=== PATIENT | female | born 1940 | race Caucasian/White ===

== ENCOUNTER 2019-07-09 13:47 | Emergency (ER) | payer MEDICARE ==
[~2019-07-09] VITALS: Ht 165.1 cm; Wt 69.7 kg
--- NOTE | 2019-07-09 14:30 | NUR ---
PT C/O CP STRAIGHT ACROSS BREASTLINE, HEAVY STARTING AT 2200 LAST NOC. NAD NOTED AT THIS TIME. SIDE RAIL UP, CALL LIGHT IN REACH. 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
[2019-07-09 15:25] LABS: BASOPHILS # (AUTO) 0.03 x10^3/uL (0-0.1); BASOPHILS % (AUTO) 0 % (0-1); EOSINOPHILS # (AUTO) 0.09 x10^3/uL (0-0.4); EOSINOPHILS % (AUTO) 1 % (1-7); LYMPHOCYTES # (AUTO) 3.77 x10^3/uL (1-3.4); LYMPHOCYTES % (AUTO) 39 % (22-44); MD NO; MEAN CORPUSCULAR HEMOGLOBIN 30.8 pg (27.0-34.8); MEAN CORPUSCULAR HGB CONC 33.8 g/dL (32.4-35.8); MEAN PLATELET VOLUME 9.6 fL (7.4-10.4); MONOCYTES # (AUTO) 0.54 x10^3/uL (0.2-0.8); MONOCYTES % (AUTO) 6 % (2-9); NEUTROPHILS # (AUTO) 5.32 x10^3/uL (1.8-6.8); NEUTROPHILS % (AUTO) 55 % (42-75); PLATELET COUNT 181 x10^3/uL (130-400); RED BLOOD COUNT 4.74 x10^6/uL (3.82-5.3); RED CELL DISTRIBUTION WIDTH 14.1 % (9.6-15.2)
[2019-07-09] MEDS ORDERED: HYDROcodone/APAP 5/325 TABLET PO ONE (15:30)
[2019-07-09 15:39] LABS: ALBUMIN 3.6 g/dL (3.4-5.0); ANION GAP 7 mmol/L (5-15); CALCIUM 9.1 mg/dL (8.5-10.1); CHLORIDE 105 mmol/L (98-107); CREATININE 0.79 mg/dL (0.55-1.02)
[2019-07-09 15:43] LABS: TROPONIN I < 0.015 ng/mL (0.000-0.045)
[2019-07-09] MEDS ORDERED: HYDROcodone/APAP 5/325 TABLET ONE (15:45)
--- NOTE | 2019-07-09 15:50 | NUR ---
PT SITTING UP IN BED TALKING WITH FRIEND IN BED, NAD NOTED AT THIS TIME, SIDE RAILS UP, CALL LIGHT IN REACH. AWAITING LAB RESULTS. MEDICATED PER EMAR.
[2019-07-09] MEDS ORDERED: SODIUM CHLORIDE FLUSH 10ML SYR IVF ONE (16:30)
--- NOTE | 2019-07-09 16:50 | NUR ---
PT SITTING UP IN BED, RESPIRATIONS EVEN AND UNLABORED ON RA. PT EDUCATED ON POC AT THIS TIME WITH CTA. NAD NOTED AT THIS TIME, SIDE RAIL UP, CALL LIGHT IN REACH.
--- NOTE | 2019-07-09 17:04 | NUR ---
ARIADNE, COUSIN [phone], REQUESTS CALL FOR UPDATES HAS TO LEAVE TO TO GO HOME AT THIS TIME. PRIMARY RN UPDATED
--- NOTE | 2019-07-09 17:22 | NUR ---
SEISMOGRAPH OPERATOR HELPER IN TO TAKE PT, WHO IS CURRENTLY REFUSING. EDUCATION PROVIDED. ERMD IN TO DISCUSS OPTIONS WITH PT. AWAITING CT AT THIS TIME.
--- NOTE | 2019-07-09 17:55 | NUR ---
REPORT TO DARIO WADE.
[2019-07-09] MEDS ORDERED: OMNIPAQUE 350 MG/ML, 100ML BOTTLE ONE (17:59)
[2019-07-09 19:39] VITALS: BP 114/68
== END 2019-07-09 19:44 | disposition home or self-care (01) ==
LOC: ED 19:33
DX: R07.2 Precordial pain (principal); J18.9 Pneumonia, unspecified organism
CPT/HCPCS: 36415; 71045; 71275; 80048; 82040; 84484; 85025; 85379; 93005; 99284; Q9967